=== PATIENT | male | born 1975 | race Two or more races ===

== ENCOUNTER 2023-09-29 09:28 | Emergency (ER) | payer SELFPAY ==
[~2023-09-29] VITALS: Ht 165.1 cm; Wt 103.8 kg
[2023-09-29 10:03] LABS: Basophils # (auto) 0.1 10 ^3/uL (0-0.2); Basophils % (auto) 0.8 % (0.0-2.0); Eosinophils # (auto) 0.9 10 ^3/uL (0-0.8); Eosinophils % (auto) 9.7 % (0.0-7.0); Hematocrit 48.3 % (41.0-53.0); Hemoglobin 16.7 g/dL (13.5-17.5); Lymphocytes # (auto) 2.5 10 ^3/uL (0.4-5.4); Lymphocytes % (auto) 26.6 % (10.0-50.0); Mean Corpuscular Hemoglobin 31.8 pg (28.0-32.0); Mean Corpuscular Hgb Conc. 34.6 g/dL (32.0-36.0); Monocytes % (auto) 10.8 % (0.0-12.0); Neutrophils # (auto) 4.9 10 ^3/uL (1.6-8.6); Neutrophils % (auto) 52.1 % (37.0-80.0); Nucleated Red Blood Cells % 0.2 %; Red Blood Cells 5.25 10^6/uL (4.5-5.90); Red Cell Distribution Width 13.2 % (11.8-14.3); White Blood Cell 9.3 10^3/uL (4.4-10.8)
[2023-09-29 10:07] LABS: Alanine Aminotransferase 38 U/L (7-40); Albumin 4.7 g/dL (3.2-4.8); Alkaline Phosphatase 82 U/L (46-116); Anion Gap 7 (5-15); Aspartate Aminotransferase 23 U/L (13-40); BUN/Creatinine Ratio 10.1 (10.0-20.0); Bilirubin, Total 0.7 mg/dL (0.2-1.0); Blood Urea Nitrogen 9 mg/dL (9-23); Calcium 9.3 mg/dL (8.5-10.1); Carbon Dioxide 28 mmol/L (20-30); Chloride 105 mmol/L (98-107); Glucose 102 mg/dL (74-106); Sodium 140 mmol/L (136-145); Total Protein 7.4 g/dL (5.7-8.2)
[2023-09-29] MEDS: ASPirin 325 MG TAB PO ONE (10:47)
[2023-09-29 10:55] VITALS: BP 119/59; RESP 18; O2SAT 97
[2023-09-29 11:45] VITALS: PULSE 78
[2023-09-29] MEDS: ENOXAPARIN SOD 100 MG/1 ML SYRINGE SC ONE (11:50)
[2023-09-29] MEDS ORDERED: IOHEXOL 350 MG/ML 100ML IJ ONE (11:58)
[2023-09-29] MEDS ORDERED: PANT40TA2 PO (12:54)
[2023-09-29] MEDS: SODIUM CHLORIDE 0.9% 500 ML IV ONE (13:03)
[2023-09-29] MEDS ORDERED: PRED10TA PO (13:35)
== END 2023-09-29 13:43 | disposition home or self-care (01) ==
LOC: ER 09:28
DX: R07.89 Other chest pain (principal); I10 Essential (primary) hypertension; Z79.899 Other long term (current) drug therapy
CPT/HCPCS: 36415; 71045; 71275; 80053; 84484; 85025; 85379; 93005; 96360; 96372; 99285; J1650; J7040; Q9967